=== PATIENT | male | born 1990 | race Caucasian/White ===

== ENCOUNTER 2017-05-16 18:55 | Emergency (ER) | payer OTHER ==
[2017-05-16 19:23] VITALS: BP 137/67
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
== END 2017-05-16 20:29 | disposition home or self-care (01) ==
LOC: UCCORT 18:55
DX: N49.8 Inflammatory disorders of other specified male genital organs (principal); F17.210 Nicotine dependence, cigarettes, uncomplicated
CPT/HCPCS: 99212; G0463

== ENCOUNTER 2018-02-27 18:49 | Emergency (ER) | payer SELFPAY ==
[2018-02-27 19:27] VITALS: BP 130/85
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
== END 2018-02-27 20:27 | disposition home or self-care (01) ==
LOC: UCCORT 18:49
DX: K04.7 Periapical abscess without sinus (principal); F17.210 Nicotine dependence, cigarettes, uncomplicated
CPT/HCPCS: 99212; G0463

== ENCOUNTER 2019-05-07 17:25 | Emergency (ER) | payer SELFPAY ==
[2019-05-07 18:12] VITALS: BP 150/80
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
== END 2019-05-07 18:39 | disposition home or self-care (01) ==
LOC: UCCORT 17:25
DX: K04.7 Periapical abscess without sinus (principal); F17.210 Nicotine dependence, cigarettes, uncomplicated
CPT/HCPCS: 99212; G0463